=== PATIENT | female | born 1950 | race Caucasian/White ===

== ENCOUNTER → 2017-02-20 | Day surgery (SDC) | payer MEDICARE, OTHER ==
[~2017-02-20] MED LIST: ASPI1TAB69 PO; ASPI81TA11 PO; GARLCAP; GLIP10TA6 PO; HYDR-3366 PO; LIDOCAINE HCL 1% PF 30 ML VIAL INFIL ONE; LISI-587 PO; MEPERIDINE HCL 25 MG/ML VIAL IV ONE; METF500T PO; METO100T PO; PROPOFOL 200 MG/20 ML AMP IV ONE; SODIUM CHLORIDE 0.9% 10 ML VIAL ONE; SOMA350T PO; TRIAMCINOLONE ACETONIDE 40 MG/ML VIAL NERV BLOCK ONE
--- NOTE | 2017-02-23 08:10 | M6 ---
cc: ANDER BRAY M.D. DATE: 02/20/2017 1952 PROCEDURE Fluoroscopically guided C7-T1 translaminar epidural steroid injection. History and physical was completed and signed. Consent was signed. Procedure site was marked. Medications were listed and reconciled. Pain score was recorded. Allergies were noted. Time out was taken. Fluoroscopy time was recorded where applicable. Sedation was administered or directed by Dr. Bray. The patient was given oxygen. The patient was monitored by a registered nurse. Total procedure time was greater than 15 minutes. IV was started, blood pressure cuff, pulse oximeter and EKG were applied. The patient was placed in the prone position on a Petey table, sedated with small amounts of Demerol and propofol titrated to effect. Vital signs were monitored and remained stable throughout the procedure. The cervical area was prepped with alcohol and 10% Betadine solution and draped with sterile drapes. Fluoroscopy was used to visualize the C7-T1 interlaminar space. The skin was infiltrated with 1% Xylocaine using a 27 gauge needle, then a 3-1/2-inch 18-gauge Saenz needle was advanced using fluoroscopic guidance and the ipso-ts-yuvuowzksy technique into the epidural space at C7-T1 slightly to the left of midline. There was negative aspiration for blood or any other type of fluid and the patient was given 6 mL of normal saline, 60 mg of Kenalog. Following the procedure the patient was taken to the recovery room with stable vital signs, neurologically intact. She will be evaluated immediately and with followup to determine if she has a subjective decrease in her usual pain and a corresponding objective increase in her functional capabilities. WMel Bray MD WRM/TLL /8:24 AM /8:07 AM
== END | disposition home or self-care (01) ==
LOC: PHSDC 07:18
PROVIDERS: ATTEND Pain Medicine Interventional Pain Medicine
DX: M54.2 Cervicalgia (principal)
CPT/HCPCS: 62321; 99152; J2175; J3301